=== PATIENT | female | born 1960 | race Caucasian/White ===

== ENCOUNTER 2017-07-02 00:52 | Inpatient (IN) | payer OTHER ==
[2017-07-02] VITALS (16 sets, daily range): BP systolic 100–132; BP diastolic 58–74; PULSE 67–90; RESP 13–18; TEMP 98–98.7; O2SAT 95–98
[~2017-07-02] VITALS: Ht 160 cm; Wt 65.0 kg
[2017-07-02] MEDS ORDERED: SODIUM CHLOR 0.9% 1000 ML INJ 1,000 ML IV SCH (01:01)
[2017-07-02 01:14] LABS: AUTOMATED NEUTROPHIL # 3.9 TH/MM3 (1.8-7.7); BASOPHIL # 0.1 TH/MM3 (0-0.2); BASOPHIL % 1.3 % (0.0-2.0); EOSINOPHIL # 0.3 TH/MM3 (0-0.4); EOSINOPHIL % 3.6 % (0.0-4.0); HEMOGLOBIN 12.8 GM/DL (11.6-15.3); LYMPHOCYTE # 3.7 TH/MM3 (1.0-4.8); MEAN CELL VOLUME 109.8 FL (80.0-100.0); MEAN CORPUSCULAR HGB CONC 32.8 % (32.0-36.0); MEAN PLATELET VOLUME 8.6 FL (7.0-11.0); MONO % 7.4 % (0.0-8.0); MONOCYTE # 0.6 TH/MM3 (0-0.9); NEUT % 44.7 % (16.0-70.0); PLATELET COUNT 330 TH/MM3 (150-450); RED BLOOD COUNT 3.55 MIL/MM3 (4.00-5.30); RED CELL DISTRIBUTION WIDTH 13.4 % (11.6-17.2); WHITE BLOOD COUNT 8.6 TH/MM3 (4.0-11.0)
[2017-07-02] MEDS ORDERED: THIAMINE INJ 100 MG in SODIUM CHLORIDE 0.9% INJ 100 ML IV ONE (01:15)
[2017-07-02] MEDS ORDERED: SODIUM CHLORIDE 0.9% FLUSH 10 ML FLUSH IV FLUSH PRN (01:15)
[2017-07-02 01:23] LABS: CHLORIDE 100 MEQ/L (98-107); SODIUM (NA) 135 MEQ/L (136-145)
[2017-07-02 01:26] LABS: CALCIUM 8.2 MG/DL (8.5-10.1)
[2017-07-02 01:27] LABS: BILIRUBIN, URINE NEG (NEG); BLOOD, URINE NEG (NEG); GLUCOSE,URINE NEG (NEG); KETONE, URINE TRACE mg/dL (NEG); NITRITE,URINE NEG (NEG); URINE LEUKOCYTE ESTERASE NEG (NEG)
[2017-07-02 01:27] LABS: ALBUMIN 3.6 GM/DL (3.4-5.0); BICARBONATE 24.6 MEQ/L (21.0-32.0); BLOOD UREA NITROGEN 10 MG/DL (7-18); GLUCOSE,RANDOM 130 MG/DL (74-106)
[2017-07-02 01:30] LABS: ALT (GPT) 19 U/L (10-53); AST (GOT) 14 U/L (15-37); CREATININE 0.47 MG/DL (0.50-1.00); GLOMERULAR FILTRATION RATE 137 ML/MIN (>89)
[2017-07-02] MEDS ORDERED: PROCHLORPERAZINE INJ 10 MG/2 ML VIAL IV PUSH ONE (01:30)
[2017-07-02 01:31] LABS: TOTAL BILIRUBIN ADULT 0.2 MG/DL (0.2-1.0); TOTAL PROTEIN 7.5 GM/DL (6.4-8.2)
[2017-07-02 01:33] LABS: ALKALINE PHOSPHATASE 64 U/L (45-117)
[2017-07-02 01:34] LABS: URINE COLOR YELLOW (YELLW/STRAW)
[2017-07-02 01:35] LABS: MUCUS URINE OCC /lpf (OCC)
[2017-07-02 01:35] LABS: TROPONIN I LESS THAN 0.02 NG/ML (0.02-0.05)
[2017-07-02 01:36] LABS: SQUAMOUS EPITHELIAL CELL URINE 0-5 /hpf (0-5)
[2017-07-02 01:37] LABS: AMORPHOUS SEDIMENT, URINE LARGE
--- NOTE | 2017-07-02 03:32 | RADRPT ---
EXAM DATE/TIME: 07/02/2017 02:36 [facility] COMPARISON: No previous studies available for comparison. INDICATIONS : Slipped and fell on stairs. RADIATION DOSE: 52.46 CTDIvol (mGy) MEDICAL HISTORY : None SURGICAL HISTORY : None. ENCOUNTER: Initial ACUITY: 1 day PAIN SCALE: 8/10 LOCATION: cranial TECHNIQUE: Multiple contiguous axial images were obtained of the head. Using automated exposure control and adj ustment of the mA and/or kV according to patient size, radiation dose was kept as low as reasonably a chievable to obtain optimal diagnostic quality images. DICOM format image data is available electro nically for review and comparison. FINDINGS: There is a small volume of acute subarachnoid hemorrhage involving the right sylvian fissure. No mass or acute infarction. Ventricles are normal in size. Mucosal thickening involving anterior ethmoid ai r cells on the right. CONCLUSION: 1. Acute subarachnoid hemorrhage on the right. Diogenes Luis Jr., MD on July 02, 2017 at 3:29 Board Certified Radiologist. This report was verified electronically.
--- NOTE | 2017-07-02 03:36 | RADRPT ---
EXAM DATE/TIME: 07/02/2017 02:36 [facility] COMPARISON: No previous studies available for comparison. INDICATIONS : Slipped and fell on stairs RADIATION DOSE: 25.60 CTDIvol (mGy) MEDICAL HISTORY : None SURGICAL HISTORY : None. ENCOUNTER: Initial ACUITY: 1 day PAIN SCALE: 8/10 LOCATION: neck TECHNIQUE: Volumetric scanning of the cervical spine was performed. Multiplanar reconstructions in the sagittal, coronal and oblique axial planes were performed. Using automated exposure control and adjustment o f the mA and/or kV according to patient size, radiation dose was kept as low as reasonably achievable to obtain optimal diagnostic quality images. DICOM format image data is available electronically f or review and comparison. FINDINGS: VERTEBRAE: Normal vertebral body height. ALIGNMENT: There is loss of the natural lordosis. A minimal grade 1 anterolisthesis of C4 on C5. Scattered calcified plaque involving the carotid arteries bilaterally. C2-C3: The bony spinal canal is normal in size. No evidence of disc bulge or herniation. The neural forami na are bilaterally patent. C3-C4: The bony spinal canal is normal in size. No evidence of disc bulge or herniation. The neural forami na are bilaterally patent. C4-C5: The bony spinal canal is normal in size. No evidence of disc bulge or herniation. The neural forami na are bilaterally patent. C5-C6: The bony spinal canal is normal in size. No evidence of disc bulge or herniation. The neural forami na are bilaterally patent. C6-C7: The bony spinal canal is normal in size. No evidence of disc bulge or herniation. The neural forami na are bilaterally patent. C7-T1: The bony spinal canal is normal in size. No evidence of disc bulge or herniation. The neural forami na are bilaterally patent. CONCLUSION: 1. No acute abnormality. Diogenes Luis Jr., MD on July 02, 2017 at 3:32 Board Certified Radiologist. This report was verified electronically.
--- NOTE | 2017-07-02 03:41 | RADRPT ---
EXAM DATE/TIME: 07/02/2017 02:36 [facility] COMPARISON: No previous studies available for comparison. INDICATIONS : Slipped and fell on stairs,abrasions on right face, RADIATION DOSE: 25.68 CTDIvol (mGy) MEDICAL HISTORY : None SURGICAL HISTORY : None. ENCOUNTER: Initial ACUITY: 1 day PAIN SCORE: 8/10 LOCATION: facial TECHNIQUE: Volumetric scanning of the facial bones was performed. Using automated exposure control and adjustme nt of the mA and/or kV according to patient size, radiation dose was kept as low as reasonably achiev able to obtain optimal diagnostic quality images. DICOM format image data is available electronicConstant Therapy y for review and comparison. FINDINGS: There is an acute fracture involving the right zygomatic arch. There is approximately 5 mm of depress ion at the fracture site. The fracture of the zygomatic arch is comminuted. There is a fracture seen extending through the posterior lateral wall the right maxillary sinus as well as through the right a nterolateral wall and right orbital floor. There is overlying soft tissue swelling. Blood is seen wit hin the right maxillary sinus. No entrapment of inferior rectus muscle observed. CONCLUSION: Acute fractures involving the right face consistent with a tripod fracture as detailed above. Diogenes Luis Jr., MD on July 02, 2017 at 3:35 Board Certified Radiologist. This report was verified electronically.
--- NOTE | 2017-07-02 03:50 | PD ---
HPI Chief Complaint: Altered Mental Status Time Seen by Provider: 01:01 Travel History International Travel<30 days: No Contact w/Intl Traveler<30days: No Traveled to known affect area: No History of Present Illness HPI The patient is a 57-year-old female that was drinking alcohol tonight and was climbing up the stairs, slipped and fell. The patient is confused. She is brought in because of altered mental status. She does have complaint of right facial and jaw and head trauma. [facility] Past Medical History Medical History: Unable to Obtain Tetanus Vaccination: Unknown ?: Not Past Surgical History Surgical History: Unable to Obtain Social History Alcohol Use: Yes (drank today, unknown how often ) Tobacco Use: No (unknown) Allergies-Medications (Allergen,Severity, Reaction): Coded Allergies: No Known Allergies (Unverified , 12/13/15) Reported Meds & Prescriptions Reported Meds & Active Scripts Active Active Prescriptions or Reported Medications Unobtainable Review of Systems ROS Limitations: Intoxication, Altered Mental Status Except as stated in HPI: all other systems reviewed are Neg Physical Exam Exam Limitations: Intoxication, Altered Mental Status Narrative GENERAL: The patient is lethargic, slow to answer questions initially and does appear intoxicated. Her vital signs are normal. SKIN: Focused skin assessment warm/dry. No needle tracks nor wrist slash levy are present. HEAD: Neither raccoon eyes nor he sign is present. Normocephalic. EYES: Pupils equal and round. No scleral icterus. No injection or drainage. ENT: No nasal bleeding or discharge. Mucous membranes pink and moist. No hemotympanum is present. There is tenderness over the right mandible as well as swelling in that area. No obvious deformity and the teeth occlude together well. NECK: Trachea midline. No JVD. CARDIOVASCULAR: Regular rate and rhythm. No murmur appreciated. RESPIRATORY: No accessory muscle use. Clear to auscultation. Breath sounds equal bilaterally. GASTROINTESTINAL: Abdomen soft, non-tender, nondistended. Hepatic and splenic margins not palpable. MUSCULOSKELETAL: No obvious deformities. No clubbing. No cyanosis. No edema. NEUROLOGICAL: Awake and alert. No obvious cranial nerve deficits. Motor grossly within normal limits. Normal speech. PSYCHIATRIC: Appropriate mood and affect; insight and judgment normal. Data Data Last Documented VS Vital Signs Date Time Temp Pulse Resp B/P (MAP) Pulse Ox O2 Delivery O2 Flow Rate FiO2 1/1/18 02:45 88 18 132/74 (93) 98 Nasal Cannula 2.00 07/02/17 00:55 98.2 Orders Orders Electrocardiogram (07/02/17 01:01) Complete Blood Count With Diff (07/02/17 01:01) Comprehensive Metabolic Panel (07/02/17 01:01) Troponin I (07/02/17 01:01) Urinalysis - C+S If Indicated (07/02/17 01:01) Ct Brain W/O Iv Contrast(Rout) (07/02/17 01:01) Blood Glucose (07/02/17 01:01) Ecg Monitoring (07/02/17 01:01) Iv Access Insert/Monitor (07/02/17 01:01) Oximetry (07/02/17 01:01) Sodium Chloride 0.9% Flush (Ns Flush) (07/02/17 01:15) Sodium Chlor 0.9% 1000 Ml Inj (Ns 1000 M (07/02/17 01:01) Thiamine Inj (Thiamine Inj) (07/02/17 01:15) Alcohol (Ethanol) (07/02/17 01:01) Ct Cerv Spine W/O Contrast (07/02/17 01:01) Prochlorperazine Inj (Compazine Inj) (07/02/17 01:30) Ct Facial Bones W/O Iv Cont (07/02/17 ) Prothrombin Time / Inr (Pt) (07/02/17 03:52) Act Partial Throm Time (Ptt) (07/02/17 03:52) Labs Laboratory Tests Test 07/02/17 01:07 07/02/17 01:20 White Blood Count 8.6 TH/MM3 Red Blood Count 3.55 MIL/MM3 Hemoglobin 12.8 GM/DL Hematocrit 39.0 % Mean Corpuscular Volume 109.8 FL Mean Corpuscular Hemoglobin 36.0 PG Mean Corpuscular Hemoglobin Concent 32.8 % Red Cell Distribution Width 13.4 % Platelet Count 330 TH/MM3 Mean Platelet Volume 8.6 FL Neutrophils (%) (Auto) 44.7 % Lymphocytes (%) (Auto) 43.0 % Monocytes (%) (Auto) 7.4 % Eosinophils (%) (Auto) 3.6 % Basophils (%) (Auto) 1.3 % Neutrophils # (Auto) 3.9 TH/MM3 Lymphocytes # (Auto) 3.7 TH/MM3 Monocytes # (Auto) 0.6 TH/MM3 Eosinophils # (Auto) 0.3 TH/MM3 Basophils # (Auto) 0.1 TH/MM3 CBC Comment DIFF FINAL Differential Comment Blood Urea Nitrogen 10 MG/DL Creatinine 0.47 MG/DL Random Glucose 130 MG/DL Total Protein 7.5 GM/DL Albumin 3.6 GM/DL Calcium Level 8.2 MG/DL Alkaline Phosphatase 64 U/L Aspartate Amino Transf (AST/SGOT) 14 U/L Alanine Aminotransferase (ALT/SGPT) 19 U/L Total Bilirubin 0.2 MG/DL Sodium Level 135 MEQ/L Potassium Level 3.3 MEQ/L Chloride Level 100 MEQ/L Carbon Dioxide Level 24.6 MEQ/L Anion Gap 10 MEQ/L Estimat Glomerular Filtration Rate 137 ML/MIN Troponin I LESS THAN 0.02 NG/ML Ethyl Alcohol Level 267 MG/DL Urine Collection Type CATH Urine Color YELLOW Urine Turbidity SLIGHT Urine pH 5.[address] 1.017 Urine Protein TRACE mg/dL Urine Glucose (UA) NEG mg/dL Urine Ketones TRACE mg/dL Urine Occult Blood NEG Urine Nitrite NEG Urine Bilirubin NEG Urine Leukocyte Esterase NEG Urine Squamous Epithelial Cells 0-5 /hpf Urine Amorphous Sediment LARGE Urine Bacteria /hpf Urine Hyaline Casts 6-9 /lpf Urine Mucus OCC /lpf Microscopic Urinalysis Comment CATH-CULT NOT IND MDM Medical Decision Making Medical Screen Exam Complete: Yes Emergency Medical Condition: Yes Medical Record Reviewed: Yes Interpretation(s) The CBC is unremarkable. The complete metabolic profile shows a sodium of 135, potassium 3.3, glucose of 1:30 but is otherwise normal. Troponin I is normal. Differential Diagnosis Intracranial bleed, facial fracture, cervical spine fracture, scalp contusion, alcohol intoxication Narrative Course The patient has a subarachnoid hemorrhage which is small without mass effect and a tripod fracture with right facial fractures. I discussed the patient with Dr. Rodriguez, the patient will be [facility]. Diagnosis Primary Impression: Subarachnoid hemorrhage Additional Impression: Fracture of other specified skull and facial bones, right side, initial encounter for closed fracture Admitting Information Admitting Physician Requests: Admit Scripts Unable to Obtain Active Prescriptions or Reported Meds Frederick Mclaughlin MD Jul 02, 2017 03:49
[2017-07-02] MEDS ORDERED: BISACODYL 10 MG SUPP RECTAL PRN (05:00)
[2017-07-02] MEDS ORDERED: SENNOSIDES 8.6 MG TAB PO PRN (05:00)
[2017-07-02] MEDS ORDERED: LABETALOL HCL 100 MG/20 ML VIAL IV PUSH PRN (05:00)
[2017-07-02] MEDS: ACETAMINOPHEN/HYDROcodone 325 MG/10 MG TAB PO PRN ×5 (05:35→21:59)
[2017-07-02] MEDS: ONDANSETRON HCL 4 MG/2 ML VIAL IV PUSH PRN ×2 (05:38→22:04)
[2017-07-02] MEDS: NS + KCL 40 MEQ INJ 1,000 ML IV SCH ×2 (05:39→15:58)
[2017-07-02] MEDS ORDERED: ASPI-183 PO (05:51)
[2017-07-02] MEDS ORDERED: LEVO100T5 PO (05:51)
[2017-07-02] MEDS: SODIUM CHLORIDE 23.4% INJ 188 MEQ in SODIUM CHLOR 0.9% 1000 ML INJ 1,000 ML IV SCH ×2 (06:10→15:00)
--- NOTE | 2017-07-02 09:09 | EKG ---
Date Performed: 07/02/2017 Time Performed: 01:13:23 PTAGE: 57 years EKG: Sinus rhythm Versus ectopic atrial rhythm LOW QRS VOLTAGE IN PRECORDIAL LEADS INCOMPLETE RIGHT BUNDLE BRANCH BLOC K BORDERLINE ECG NO PREVIOUS TRACING DOCTOR: Antonio Lopez Interpretating Date/Time 07/02/2017 09:08:38
[2017-07-02] MEDS: PANTOPRAZOLE SOD 40 MG DELAYED RELEASE TAB PO SCH (09:11)
[2017-07-02] MEDS: DOCUSATE SODIUM 50 MG/SENNA 8.6 MG TAB PO SCH ×2 (09:11→21:59)
--- NOTE | 2017-07-02 12:58 | HHI.HP ---
HPI Service Neurosurgery Primary Care Physician Unknown Chief Complaint: Headache History of Present Illness The patient is a 57-year-old female who reportedly fell while climbing some steps yesterday. She does not recall the incident. She was brought to the emergency room with confusion, altered mental status. No seizure activity reported. She did complain of right facial pain in the emergency room. She presently complains of moderate headache. No nausea or vomiting. Positive diplopia particularly with upward gaze. Otherwise no loss of vision. She has some persistent right facial and jaw discomfort. Review of Systems ROS Limitations: Intoxication Constitutional: DENIES: Fever, Weight gain, Weight loss, Dizziness Eyes: COMPLAINS OF: Diplopia, DENIES: Blurred vision, Vision loss Ears, nose, mouth, throat: DENIES: Tinnitus, Hearing loss, Vertigo Respiratory: DENIES: Cough, Shortness of breath Cardiovascular: DENIES: Chest pain Gastrointestinal: DENIES: Abdominal pain, Diarrhea, Nausea Musculoskeletal: COMPLAINS OF: Muscle aches, DENIES: Joint pain, Back pain, Neck pain Hematologic/lymphatic: DENIES: Bruising Neurologic: COMPLAINS OF: Headache, DENIES: Abnormal gait, Localized weakness Psychiatric: COMPLAINS OF: Confusion Past Family Social History Allergies: Coded Allergies: No Known Allergies (Unverified Allergy, Unknown, 07/02/17) Past Medical History No history of significant cardiac pulmonary gastrointestinal disease diabetes or hypertension. Positive hypothyroidism Past Surgical History No previous surgeries Reported Medications Reported Meds & Active Scripts Active Reported Aspirin 325 Mg Tab 325 Mg PO DAILY Levothyroxine (Levothyroxine Sodium) 100 Mcg Tab 100 Mcg PO DAILY Family History No history of diabetes, cardiac disease, cancer in the family Social History She drinks alcohol occasionally. Smoke cigarettes infrequently Physical Exam Vital Signs Vital Signs Date Time Temp Pulse Resp B/P (MAP) Pulse Ox O2 Delivery O2 Flow Rate FiO2 07/02/17 06:00 89 07/02/17 05:12 87 07/02/17 05:04 91 Room Air 07/02/17 04:44 98.3 85 18 100/58 (72) 98 07/02/17 04:04 98.7 67 18 100/65 (77) 98 Room Air 07/02/17 02:45 88 18 132/74 (93) 98 Nasal Cannula 2.00 07/02/17 01:53 95 3.00 07/02/17 01:00 97 Nasal Cannula 3.00 07/02/17 00:55 98.2 84 16 124/72 (89) 98 Physical Exam GENERAL: This is a well-nourished, well-developed patient, no apparent distress. SKIN: No abrasions, contusion, rash noted. Skin warm and dry. HEAD: Atraumatic. Normocephalic. No temporal or scalp tenderness. EYES: Mild right scleral edema ENT: Mild right facial and periorbital edema and ecchymosis. Mild conjunctival ecchymosis. Moderate tenderness right lateral face of the zygoma and temporomandibular joint region NECK: Trachea midline. No cervical spine tenderness. CARDIOVASCULAR: Regular rate and rhythm without murmurs, gallops, or rubs. RESPIRATORY: Clear to auscultation. Breath sounds equal bilaterally. No wheezes , rales, or rhonchi. GASTROINTESTINAL: Abdomen soft, non-tender, nondistended. No hepato-splenomegaly , or palpable masses. No guarding. MUSCULOSKELETAL: Extremities without cyanosis, or edema. No joint tenderness, or edema noted. No calf tenderness. Dorsalis pedis pulses 2+ bilateral NEUROLOGICAL: Mild lethargy Arouses easily to voice Oriented X 3 Speech is slow with minimal dysarthria Conversant and appropriate Follow simple commands well Answers questions appropriately Reasonable judgment and insight Recent and remote memory are intact except for the events of last evening No evidence of anxiety or depression Pupils are equal and reactive to accommodation. Visual [place] to confrontation , facial sensorimotor, tongue, palate, sternocleidomastoid testing, hearing to finger rub testing, and bilateral shoulder shrug are all intact. The patient appears to have decreased right superior gaze with complaining of diplopia with superior gaze. Sensation is intact to light touch in all extremities Strength normal major flexion and extension groups all extremities Bhavik's absent bilaterally No ankle clonus Plantar responses absent bilateral Fine motor movements intact upper extremities Laboratory Laboratory Tests Test 07/02/17 01:07 07/02/17 01:20 07/02/17 03:57 White Blood Count 8.6 Red Blood Count 3.55 Hemoglobin 12.8 Hematocrit 39.0 Mean Corpuscular Volume 109.8 Mean Corpuscular Hemoglobin 36.0 Mean Corpuscular Hemoglobin Concent 32.8 Red Cell Distribution Width 13.4 Platelet Count 330 Mean Platelet Volume 8.6 Neutrophils (%) (Auto) 44.7 Lymphocytes (%) (Auto) 43.0 Monocytes (%) (Auto) 7.4 Eosinophils (%) (Auto) 3.6 Basophils (%) (Auto) 1.3 Neutrophils # (Auto) 3.9 Lymphocytes # (Auto) 3.7 Monocytes # (Auto) 0.6 Eosinophils # (Auto) 0.3 Basophils # (Auto) 0.1 CBC Comment DIFF FINAL Differential Comment Blood Urea Nitrogen 10 Creatinine 0.47 Random Glucose 130 Total Protein 7.5 Albumin 3.6 Calcium Level 8.2 Alkaline Phosphatase 64 Aspartate Amino Transf (AST/SGOT) 14 Alanine Aminotransferase (ALT/SGPT) 19 Total Bilirubin 0.2 Sodium Level 135 Potassium Level 3.3 Chloride Level 100 Carbon Dioxide Level 24.6 Anion Gap 10 Estimat Glomerular Filtration Rate 137 Troponin I LESS THAN 0.02 Ethyl Alcohol Level 267 Urine Collection Type CATH Urine Color YELLOW Urine Turbidity SLIGHT Urine pH 5.0 Urine Specific [place] 1.017 Urine Protein TRACE Urine Glucose (UA) NEG Urine Ketones TRACE Urine Occult Blood NEG Urine Nitrite NEG Urine Bilirubin NEG Urine Leukocyte Esterase NEG Urine Squamous Epithelial Cells 0-5 Urine Amorphous Sediment LARGE Urine Bacteria Urine Hyaline Casts 6-9 Urine Mucus OCC Microscopic Urinalysis Comment CATH-CULT NOT IND Prothrombin Time 10.0 Prothromb Time International Ratio 1.0 Activated Partial Thromboplast Time 20.5 Result Diagram: 07/02/1710607/02/17106 Imaging 07/02/17 CT scan of the head, cervical spine, maxillofacial CT images are reviewed by the undersigned. There is mild right frontoparietal region subarachnoid hemorrhage. No significant mass effect. Positive right facial fracture of the zygoma extending towards right lateral maxillary sinus and orbital floor. Head CT 07/02/17100 Signed Impressions: Service Date/Time: Sunday, July 02, 2017 02:36 - CONCLUSION: 1. Acute subarachnoid hemorrhage on the right. Diogenes Luis Jr., MD Cervical Spine CT 07/02/17100 Signed Impressions: Service Date/Time: Sunday, July 02, 2017 02:36 - CONCLUSION: 1. No acute abnormality. Diogenes Luis Jr., MD Maxillofacial CT 07/02/17 0000 Signed Impressions: Service Date/Time: Sunday, July 02, 2017 02:36 - CONCLUSION: Acute fractures involving the right face consistent with a tripod fracture as detailed above. MD Donna Jay Jr. VTE Risk Assessment Donna VTE Risk Assessment: No/Low Risk (score <= 1) VTE Pharm Contraindication: Hemorrhage Caprini Risk Assessment Model Point Value = 1 Point Value = 2 Point Value = 3 Point Value = 5 Age 41-60 Minor surgery BMI > 25 kg/m2 Swollen legs Varicose veins or History of unexplained or recurrent spontaneous Oral contraceptives or hormone replacement Sepsis (< 1 month) Serious lung disease, including pneumonia (< 1 month) Abnormal pulmonary function Acute myocardial infarction Congestive heart failure (< 1 month) History of inflammatory bowel disease Medical patient at bed rest Age 61-74 Arthroscopic surgery Major open surgery (> 45 min) Laparoscopic surgery (> 45 min) Malignancy Confined to bed (> 72 hours) Immobilizing plaster cast Central venous access Age >= 75 History of VTE Family history of VTE Factor V Leiden Prothrombin [id number] Lupus anticoagulant Anticardiolipin antibodies Elevated serum homocysteine Heparin-induced thrombocytopenia Other congenital or acquired thrombophilia Stroke (< 1 month) Elective arthroplasty Hip, pelvis, or leg fracture Acute spinal cord injury (< 1 month) Prophylaxis Regimen Total Risk Factor Score Risk Level Prophylaxis Regimen 0-1 Low Early ambulation 2 Moderate Order ONE of the following: *Sequential Compression Device (SCD) *Heparin 5000 units SQ BID 3-4 Higher Order ONE of the following medications: *Heparin 5000 units SQ TID *Enoxaparin/Lovenox 40 mg SQ daily (WT < 150 kg, CrCl > 30 mL/min) *Enoxaparin/Lovenox 30 mg SQ daily (WT < 150 kg, CrCl > 10-29 mL/min) *Enoxaparin/Lovenox 30 mg SQ BID (WT < 150 kg, CrCl > 30 mL/min) AND/OR *Sequential Compression Device (SCD) 5 or more Highest Order ONE of the following medications: *Heparin 5000 units SQ TID (Preferred with Epidurals) *Enoxaparin/Lovenox 40 mg SQ daily (WT < 150 kg, CrCl > 30 mL/min) *Enoxaparin/Lovenox 30 mg SQ daily (WT < 150 kg, CrCl > 10-29 mL/min) *Enoxaparin/Lovenox 30 mg SQ BID (WT < 150 kg, CrCl > 30 mL/min) AND *Sequential Compression Device (SCD) Assessment and Plan Assessment and Plan Impression: 1. 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 Right facial tripod fracture. Diplopia with upward gaze 3. Hyponatremia 4. Hypokalemia 5. Hypothyroidism 6. Alcohol intoxication Plan: Findings discussed with the patient. Continue ISC neuro checks and vital signs Follow-up CT scan head 07/03/17 Hypertonic saline and potassium infusion with follow-up electrolytes Continue patient's normal thyroid medication Plastic surgery consult for facial fractures-discussed the plastic surgery today. Ophthalmology consultation due to orbital floor fracture with upward gaze diplopia. Zheng Rodriguez MD Jul 02, 2017 12:58
[2017-07-02 13:23] LABS: BICARBONATE 24.9 MEQ/L (21.0-32.0); CREATININE 0.47 MG/DL (0.50-1.00); MAGNESIUM 1.8 MG/DL (1.5-2.5)
--- NOTE | 2017-07-02 14:50 | PD.CONS ---
History of Present Illness Service Plastic surgery Consult Requested By Trauma surgery Reason for Consult Right ZMC fracture Primary Care Physician Unknown Diagnoses: History of Present Illness 57F who reportedly fell while climbing some steps yesterday. She does not recall the incident. She was brought to the emergency room with confusion, altered mental status. The patient admits to drinking heavily. She presently complains of moderate headache and right cheek pain. No nausea or vomiting. Positive diplopia in all extremes of gaze. Patient denies changes in vision with central gaze. Patient reports pain with biting Review of Systems Otherwise noncontributory to presenting complaint Past Family Social History Allergies: Coded Allergies: No Known Allergies (Unverified Allergy, Unknown, 07/02/17) Past Medical History NKDA PMH hypothyroidism PSH Denies Medications reviewed FH diabetes, cardiac disease, cancer in the family SH + EtOH/cigarettes Physical Exam Vital Signs Vital Signs Date Time Temp Pulse Resp B/P (MAP) Pulse Ox O2 Delivery O2 Flow Rate FiO2 07/02/17 09:30 96 Nasal Cannula 1.00 07/02/17 07:00 92 Room Air 07/02/17 06:00 89 07/02/17 05:12 87 07/02/17 05:04 91 Room Air 07/02/17 04:44 98.3 85 18 100/58 (72) 98 07/02/17 04:04 98.7 67 18 100/65 (77) 98 Room Air 07/02/17 02:45 88 18 132/74 (93) 98 Nasal Cannula 2.00 07/02/17 01:53 95 3.00 07/02/17 01:00 97 Nasal Cannula 3.00 07/02/17 00:55 98.2 84 16 124/72 (89) 98 Patient sleeping but easily arousable. Alert and oriented 3 No acute distress PERRLA Moist mucous membranes Skin without rash Respirations nonlabored Cranial nerves intact by exam V1 to V3 sensation intact to light touch, normal, and symmetric, except for decrease in right V2 distribution Moderate edema over right zygoma Face nontender to firm palpation except overlying right zygoma Obvious deformity of right zygoma and arch Obvious right vertical ocular dystopia No restriction in upward gaze Extraocular muscles intact Patient reports diplopia in all extremes of gaze Positive orbital rim, zygomatic arch, and zygoma step-offs appreciated Intraorally, patient with multiple missing molars bilaterally Poor dentition overall patient does not report tenderness to direct palpation of teeth Vision appears intact and without changes in central gaze Mild enopthalmos on right Physical Exam GENERAL: This is a well-nourished, well-developed patient, in no apparent distress. SKIN: No rashes, ecchymoses or lesions. Cool and dry. HEAD: Atraumatic. Normocephalic. No temporal or scalp tenderness. EYES: Pupils equal round and reactive. Extraocular motions intact. No scleral icterus. No injection or drainage. ENT: Nose without bleeding, purulent drainage or septal hematoma. Throat without erythema, tonsillar hypertrophy or exudate. Uvula midline. Airway patent. NECK: Trachea midline. No JVD or lymphadenopathy. Supple, nontender, no meningeal signs. CARDIOVASCULAR: Regular rate and rhythm without murmurs, gallops, or rubs. RESPIRATORY: Clear to auscultation. Breath sounds equal bilaterally. No wheezes , rales, or rhonchi. GASTROINTESTINAL: Abdomen soft, non-tender, nondistended. No hepato-splenomegaly , or palpable masses. No guarding. MUSCULOSKELETAL: Extremities without clubbing, cyanosis, or edema. No joint tenderness, effusion, or edema noted. No calf tenderness. Negative Homans sign bilaterally. NEUROLOGICAL: Awake and alert. Cranial nerves II through XII intact. Motor and sensory grossly within normal limits. Five out of 5 muscle strength in all muscle groups. Normal speech. Laboratory Laboratory Tests Test 07/02/17 01:07 07/02/17 01:20 07/02/17 03:57 07/02/17 12:37 White Blood Count 8.6 Red Blood Count 3.55 Hemoglobin 12.8 Hematocrit 39.0 Mean Corpuscular Volume 109.8 Mean Corpuscular Hemoglobin 36.0 Mean Corpuscular Hemoglobin Concent 32.8 Red Cell Distribution Width 13.4 Platelet Count 330 Mean Platelet Volume 8.6 Neutrophils (%) (Auto) 44.7 Lymphocytes (%) (Auto) 43.0 Monocytes (%) (Auto) 7.4 Eosinophils (%) (Auto) 3.6 Basophils (%) (Auto) 1.3 Neutrophils # (Auto) 3.9 Lymphocytes # (Auto) 3.7 Monocytes # (Auto) 0.6 Eosinophils # (Auto) 0.3 Basophils # (Auto) 0.1 CBC Comment DIFF FINAL Differential Comment Blood Urea Nitrogen 10 6 Creatinine 0.47 0.47 Random Glucose 130 103 Total Protein 7.5 Albumin 3.6 Calcium Level 8.2 8.0 Alkaline Phosphatase 64 Aspartate Amino Transf (AST/SGOT) 14 Alanine Aminotransferase (ALT/SGPT) 19 Total Bilirubin 0.2 Sodium Level 135 139 Potassium Level 3.3 4.3 Chloride Level 100 108 Carbon Dioxide Level 24.6 24.9 Anion Gap 10 6 Estimat Glomerular Filtration Rate 137 137 Troponin I LESS THAN 0.02 Ethyl Alcohol Level 267 Urine Collection Type CATH Urine Color YELLOW Urine Turbidity SLIGHT Urine pH 5.0 Urine Specific [place] 1.017 Urine Protein TRACE Urine Glucose (UA) NEG Urine Ketones TRACE Urine Occult Blood NEG Urine Nitrite NEG Urine Bilirubin NEG Urine Leukocyte Esterase NEG Urine Squamous Epithelial Cells 0-5 Urine Amorphous Sediment LARGE Urine Bacteria Urine Hyaline Casts 6-9 Urine Mucus OCC Microscopic Urinalysis Comment CATH-CULT NOT IND Prothrombin Time 10.0 Prothromb Time International Ratio 1.0 Activated Partial Thromboplast Time 20.5 Magnesium Level 1.8 Result Diagram: 07/02/17 0107 07/02/[address] images personally reviewed by me. They show fractures involving the maxillary buttresses, infraorbital rim, zygomatic arch, and zygomaticofrontal buttress, and orbital floor. These are consistent with a zygomaticomaxillary complex fracture with displacement. Assessment and Plan Problem List: (1) Zygomatic fracture, right side, initial encounter for closed fracture ICD Codes: S02.40EA - Zygomatic fracture, right side, initial encounter for closed fracture Status: Acute Assessment and Plan 57-year-old female who presents status post fall down stairs, with displaced right ZMC fracture Lengthy discussion had with patient regarding risks benefits and alternatives to various treatment options. Discussed with patient in words she could understand regarding complications of this fracture whether it is treated or not, including but not limited to enophthalmos, vertical orbital dystopia, vision changes, injury to the eye, deformity, malocclusion/changes in bite, need for further procedures. Patient agrees with the recommendation for operative repair. She therefore elects to assume the risks of operative repair . Informed consent was obtained. Given her degree of edema, will plan to perform operative repair 7-10 days from today. All questions were answered. Patient expresses understanding and agrees with above plan Frederick Moon MD Jul 02, 2017 14:50
[2017-07-03] VITALS (13 sets, daily range): BP systolic 120–138; BP diastolic 60–76; PULSE 65–80; RESP 12–21; TEMP 98.1–98.6; O2SAT 90–98
[2017-07-03] MEDS: SODIUM CHLORIDE 23.4% INJ 188 MEQ in SODIUM CHLOR 0.9% 1000 ML INJ 1,000 ML IV SCH ×2 (01:00→18:29)
[2017-07-03] MEDS: ACETAMINOPHEN/HYDROcodone 325 MG/10 MG TAB PO PRN ×6 (01:53→23:40)
[2017-07-03] MEDS: NS + KCL 40 MEQ INJ 1,000 ML IV SCH ×2 (03:37→17:08)
[2017-07-03 05:25] LABS: AUTOMATED NEUTROPHIL # 7.3 TH/MM3 (1.8-7.7); BASOPHIL % 0.2 % (0.0-2.0); EOSINOPHIL # 0.1 TH/MM3 (0-0.4); EOSINOPHIL % 0.7 % (0.0-4.0); HEMATOCRIT 34.9 % (35.0-46.0); HEMOGLOBIN 11.7 GM/DL (11.6-15.3); LYMPHOCYTE # 1.6 TH/MM3 (1.0-4.8); MEAN CELL VOLUME 111.5 FL (80.0-100.0); MEAN CORPUSCULAR HEMOGLOBIN 37.4 PG (27.0-34.0); MEAN CORPUSCULAR HGB CONC 33.5 % (32.0-36.0); MEAN PLATELET VOLUME 8.8 FL (7.0-11.0); MONO % 8.4 % (0.0-8.0); MONOCYTE # 0.8 TH/MM3 (0-0.9); NEUT % 74.7 % (16.0-70.0); PLATELET COUNT 235 TH/MM3 (150-450); RED BLOOD COUNT 3.13 MIL/MM3 (4.00-5.30); RED CELL DISTRIBUTION WIDTH 13.1 % (11.6-17.2); WHITE BLOOD COUNT 9.7 TH/MM3 (4.0-11.0)
[2017-07-03 05:43] LABS: CALCIUM 8.6 MG/DL (8.5-10.1); CREATININE 0.54 MG/DL (0.50-1.00)
[2017-07-03] MEDS: DOCUSATE SODIUM 50 MG/SENNA 8.6 MG TAB PO SCH ×2 (09:00→20:02)
[2017-07-03] MEDS: PANTOPRAZOLE SOD 40 MG DELAYED RELEASE TAB PO SCH (10:00)
[2017-07-03] MEDS: ONDANSETRON HCL 4 MG/2 ML VIAL IV PUSH PRN ×3 (10:01→23:41)
--- NOTE | 2017-07-03 12:51 | HHI.NSPN ---
(Poli Valdivia) History Chief Complaint: Doing better than yesterday. (Poli Valdivia) Interval History 07/02: The patient is a 57-year-old female who reportedly fell while climbing some steps yesterday. She does not recall the incident. She was brought to the emergency room with confusion, altered mental status. No seizure activity reported. She did complain of right facial pain in the emergency room. She presently complains of moderate headache. No nausea or vomiting. Positive diplopia particularly with upward gaze. Otherwise no loss of vision. She has some persistent right facial and jaw discomfort. 07/03: When seen this afternoon Nursing had just gotten the patient up to the side of the bed. She stated she was doing better than yesterday and denied any headache, dizziness, or nausea. She also denied any pain, numbness, tingling or weakness to the extremities. Her is visiting with her. She spontaneously moves all extremities, follows commands and is oriented. Plastic Surgery evaluated the patient yesterday and will repair the facial fractures once her swelling goes down. (oPli Valdivia) Exam Results 07/01/17 07/01/17 07/02/17 07/02/17 07/03/17 07/03/17 06:00 18:00 06:00 18:00 06:00 18:00 Intake Total 1101 ml 1597 ml 1383 ml Output Total 1695 ml 1500 ml Balance 1101 ml -98 ml -117 ml Intake Oral 250 ml IV Total 1101 ml 1347 ml 1383 ml Output Urine Total 1695 ml 1500 ml # Voids 8 6 # Bowel Movements 0 0 Vital Signs Date Time Temp Pulse Resp B/P (MAP) Pulse Ox O2 Delivery O2 Flow Rate FiO2 07/03/17 11:00 22 07/03/17 10:00 78 07/03/17 08:13 95 Nasal Cannula 1.00 07/03/17 08:00 65 07/03/17 07:00 99 Nasal Cannula 1.00 07/03/17 06:00 74 07/03/17 04:00 72 07/03/17 04:00 98.6 72 12 120/66 (84) 97 07/03/17 02:00 70 07/03/17 00:00 98.2 78 12 128/75 (92) 96 07/03/17 00:00 78 07/02/17 22:00 84 07/02/17 20:00 98.0 80 13 111/63 (79) 98 07/02/17 20:00 80 07/02/17 19:51 97 Nasal Cannula 1.00 07/02/17 19:00 97 Nasal Cannula 1.00 07/02/17 18:00 78 07/02/17 16:00 80 07/02/17 14:00 90 07/02/17 12:00 88 07/02/17 10:00 82 07/02/17 09:30 96 Nasal Cannula 1.00 07/02/17 08:00 85 07/02/17 07:00 92 Room Air 07/02/17 06:00 89 07/02/17 05:12 87 07/02/17 05:04 91 Room Air 07/02/17 04:44 98.3 85 18 100/58 (72) 98 07/02/17 04:04 98.7 67 18 100/65 (77) 98 Room Air 07/02/17 02:45 88 18 132/74 (93) 98 Nasal Cannula 2.00 07/02/17 01:53 95 3.00 07/02/17 01:00 97 Nasal Cannula 3.00 07/02/17 00:55 98.2 84 16 124/72 (89) 98 (Poli Valdivia) Physical Examination GENERAL: Awake & alert, readily interacts, essentially flat affect, no apparent distress. HEENT: Ecchymosis to the right lateral orbit w/laceration-abrasion mildly TTP. Zygoma & temporomandibular joint mildly TTP. PERRLA 3 mm brisk, EOMI. No otorrhea or rhinorrhea. MMM & pink, tongue midline to protrusion. Slight right- sided facial droop. MUSCULOSKELETAL: Extremities NTTP, no clubbing or deformity noted. NEUROLOGICAL: AAOx3. Speech clear but slow, appropriate. Follows simple commands w/o difficulty. Probable CN VII deficit indicated by slight right-sided facial droop otherwise CN II-XII are grossly intact. The patient denies any diplopia with superior gaze to right eye. Sensation is intact to light touch in all extremities. Strength normal to all major flexion and extension muscle groups of extremities , to include hand intrinsics/extrinsics. (Poli Valdivia) Lab, Micro, Other Results Recent Impressions Head CT 07/02/17100 Signed Impressions: Service Date/Time: Sunday, July 02, 2017 02:36 - CONCLUSION: 1. Acute subarachnoid hemorrhage on the right. Diogenes Luis Jr., MD Cervical Spine CT 07/02/17100 Signed Impressions: Service Date/Time: Sunday, July 02, 2017 02:36 - CONCLUSION: 1. No acute abnormality. Diogenes Luis Jr., MD Maxillofacial CT 07/02/17 0000 Signed Impressions: Service Date/Time: Sunday, July 02, 2017 02:36 - CONCLUSION: Acute fractures involving the right face consistent with a tripod fracture as detailed above. Diogenes Luis Jr., MD Laboratory Tests Test 07/02/17 01:07 07/02/17 01:20 07/02/17 03:57 07/02/17 12:37 White Blood Count 8.6 TH/MM3 Red Blood Count 3.55 MIL/MM3 Hemoglobin 12.8 GM/DL Hematocrit 39.0 % Mean Corpuscular Volume 109.8 FL Mean Corpuscular Hemoglobin 36.0 PG Mean Corpuscular Hemoglobin Concent 32.8 % Red Cell Distribution Width 13.4 % Platelet Count 330 TH/MM3 Mean Platelet Volume 8.6 FL Neutrophils (%) (Auto) 44.7 % Lymphocytes (%) (Auto) 43.0 % Monocytes (%) (Auto) 7.4 % Eosinophils (%) (Auto) 3.6 % Basophils (%) (Auto) 1.3 % Neutrophils # (Auto) 3.9 TH/MM3 Lymphocytes # (Auto) 3.7 TH/MM3 Monocytes # (Auto) 0.6 TH/MM3 Eosinophils # (Auto) 0.3 TH/MM3 Basophils # (Auto) 0.1 TH/MM3 CBC Comment DIFF FINAL Differential Comment Blood Urea Nitrogen 10 MG/DL 6 MG/DL Creatinine 0.47 MG/DL 0.47 MG/DL Random Glucose 130 MG/DL 103 MG/DL Total Protein 7.5 GM/DL Albumin 3.6 GM/DL Calcium Level 8.2 MG/DL 8.0 MG/DL Alkaline Phosphatase 64 U/L Aspartate Amino Transf (AST/SGOT) 14 U/L Alanine Aminotransferase (ALT/SGPT) 19 U/L Total Bilirubin 0.2 MG/DL Sodium Level 135 MEQ/L 139 MEQ/L Potassium Level 3.3 MEQ/L 4.3 MEQ/L Chloride Level 100 MEQ/L 108 MEQ/L Carbon Dioxide Level 24.6 MEQ/L 24.9 MEQ/L Anion Gap 10 MEQ/L 6 MEQ/L Estimat Glomerular Filtration Rate 137 ML/MIN 137 ML/MIN Troponin I LESS THAN 0.02 NG/ML Ethyl Alcohol Level 267 MG/DL Urine Collection Type CATH Urine Color YELLOW Urine Turbidity SLIGHT Urine pH 5.0 Urine Specific [place] 1.017 Urine Protein TRACE mg/dL Urine Glucose (UA) NEG mg/dL Urine Ketones TRACE mg/dL Urine Occult Blood NEG Urine Nitrite NEG Urine Bilirubin NEG Urine Leukocyte Esterase NEG Urine Squamous Epithelial Cells 0-5 /hpf Urine Amorphous Sediment LARGE Urine Bacteria /hpf Urine Hyaline Casts 6-9 /lpf Urine Mucus OCC /lpf Microscopic Urinalysis Comment CATH-CULT NOT IND Prothrombin Time 10.0 SEC Prothromb Time International Ratio 1.0 RATIO Activated Partial Thromboplast Time 20.5 SEC Magnesium Level 1.8 MG/DL Test 07/03/17 04:56 White Blood Count 9.7 TH/MM3 Red Blood Count 3.13 MIL/MM3 Hemoglobin 11.7 GM/DL Hematocrit 34.9 % Mean Corpuscular Volume 111.5 FL Mean Corpuscular Hemoglobin 37.4 PG Mean Corpuscular Hemoglobin Concent 33.5 % Red Cell Distribution Width 13.1 % Platelet Count 235 TH/MM3 Mean Platelet Volume 8.8 FL Neutrophils (%) (Auto) 74.7 % Lymphocytes (%) (Auto) 16.0 % Monocytes (%) (Auto) 8.4 % Eosinophils (%) (Auto) 0.7 % Basophils (%) (Auto) 0.2 % Neutrophils # (Auto) 7.3 TH/MM3 Lymphocytes # (Auto) 1.6 TH/MM3 Monocytes # (Auto) 0.8 TH/MM3 Eosinophils # (Auto) 0.1 TH/MM3 Basophils # (Auto) 0.0 TH/MM3 CBC Comment DIFF FINAL Differential Comment Blood Urea Nitrogen 5 MG/DL Creatinine 0.54 MG/DL Random Glucose 100 MG/DL Calcium Level 8.6 MG/DL Sodium Level 140 MEQ/L Potassium Level 4.7 MEQ/L Chloride Level 105 MEQ/L Carbon Dioxide Level 30.0 MEQ/L Anion Gap 5 MEQ/L Estimat Glomerular Filtration Rate 117 ML/MIN (Poli Valdivia) Medical Decision Making Impression and Plan Impression: 1. 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 Right facial tripod fracture. Diplopia with upward gaze 3. Hyponatremia 4. Hypokalemia 5. Hypothyroidism 6. Alcohol intoxication Patient doing well and is neurologically intact except for right-sided facial droop. Right eye diplopia resolved per patient. Plan: Discussed plan of care with patient, & Nursing. Neuro checks. Stat CT brain for any decline in neuro status. Follow-up CT brain today. Okay for BSC w/assistance. Continue thyroid medication. Appreciate Plastic Surgery's input for facial fractures. Ophthalmology consultation due to orbital floor fracture with upward gaze diplopia. (Poli Valdivia) Attending Statement The exam, history, and the medical decision-making described in the above note were completed with the assistance of the mid-level provider. I reviewed and agree with the findings presented. I attest that I had a [id number] encounter with the patient on the same day, and personally performed and documented my assessment and findings in the medical record. On my examination of the patient on 07/03/2017 she is somewhat more alert and conversant. Speech is a little slow but clear. She is oriented conversant and appropriate. She continues to complain of diplopia with right upward gaze. Facial motor movements symmetric She moves all extremities with good strength to command Sensation intact light touch all extremities Respirations are clear and nonlabored Heart rate is regular 07/03/17 follow-up CT scan head images reviewed and discussed with the patient. There is early improvement in the mild subarachnoid hemorrhage. She is stable from a neurosurgical standpoint to proceed with repair of facial fractures per plastic surgery. Ophthalmology has not yet seen the patient. (Zheng Rodriguez MD) Poli Valdivia Jul 03, 2017 12:51 Zheng Rodriguez MD Jul 04, 2017 13:41
--- NOTE | 2017-07-03 15:56 | RADRPT ---
EXAM DATE/TIME: 07/03/2017 15:36 [facility] COMPARISON: CT BRAIN W/O CONTRAST, July 02, 2017, 2:36. INDICATIONS : Head trauma RADIATION DOSE: 31.66 CTDIvol (mGy) MEDICAL HISTORY : Subarachnoid hemorrhage SURGICAL HISTORY : None. ENCOUNTER: Initial ACUITY: 1 day PAIN SCALE: 4/10 LOCATION: cranial TECHNIQUE: Multiple contiguous axial images were obtained of the head. Using automated exposure control and adj ustment of the mA and/or kV according to patient size, radiation dose was kept as low as reasonably a chievable to obtain optimal diagnostic quality images. DICOM format image data is available electro nically for review and comparison. FINDINGS: The previously seen subarachnoid hemorrhage on the right side has improved significantly with minimal hemorrhage remaining. There is no evidence for mass effect, mass lesions, edema, or extra-axial flui d collections. The visualized bony structures appear intact. The ventricles are normal size for the patient's age. There are no signs of acute infarction for technique. There are facial bone fracture s discussed and the patient facial CT. 8mm lucencies present in the left frontal skull nonspecific, h owever mostly benign. CONCLUSION: Improvement in subarachnoid hemorrhage since the prior exam. Jaron Taylor MD on July 03, 2017 at 15:51 Board Certified Radiologist. This report was verified electronically.
[2017-07-04] VITALS (11 sets, daily range): BP systolic 116–151; BP diastolic 75–83; PULSE 66–80; RESP 12–22; TEMP 97.9–98.8; O2SAT 92–100
[2017-07-04] MEDS: NS + KCL 40 MEQ INJ 1,000 ML IV SCH ×3 (03:31→17:14)
[2017-07-04] MEDS: ACETAMINOPHEN/HYDROcodone 325 MG/10 MG TAB PO PRN ×5 (03:45→21:54)
[2017-07-04] MEDS: SODIUM CHLORIDE 23.4% INJ 188 MEQ in SODIUM CHLOR 0.9% 1000 ML INJ 1,000 ML IV SCH ×2 (07:37→16:35)
[2017-07-04] MEDS: ONDANSETRON HCL 4 MG/2 ML VIAL IV PUSH PRN ×3 (08:03→16:34)
[2017-07-04] MEDS: PANTOPRAZOLE SOD 40 MG DELAYED RELEASE TAB PO SCH (09:24)
[2017-07-04] MEDS: DOCUSATE SODIUM 50 MG/SENNA 8.6 MG TAB PO SCH ×2 (09:24→21:54)
[2017-07-04] MEDS ORDERED: HYDR-3583 PO (15:03)
--- NOTE | 2017-07-04 15:11 | HHI.FF ---
Face to Face Verification Diagnosis: (1) Subarachnoid hemorrhage (2) Fracture of other specified skull and facial bones, right side, initial encounter for closed fracture (3) Zygomatic fracture, right side, initial encounter for closed fracture Physical Therapy Order: Evaluate and Treat Occupational Therapy Order: Evaluate and Treat Speech Therapy Order: To Improve: Speech and communication skills, Cognitive skills I have seen patient Clint Benitez on 07/04/17. My clinical findings support the need for the requested home health care services because: Limited ability to care for self Impaired cognition/judgement I certify that my clinical findings support that this patient is homebound because: Impaired cognitive ability/safety Poli Valdivia Jul 04, 2017 15:11 Zheng Rodriguez MD Jul 04, 2017 20:03
--- NOTE | 2017-07-04 15:13 | HHI.DCPOC ---
Discharge Care Plan Diagnosis: (1) Subarachnoid hemorrhage (2) Fracture of other specified skull and facial bones, right side, initial encounter for closed fracture (3) Zygomatic fracture, right side, initial encounter for closed fracture Your Health Problems Are: Difficulty with ADL Additional Problems Confusion Goals to Promote Your Health * To prevent worsening of your condition and complications * To maintain your health at the optimal level No lifting, bending, pushing, pulling or other strenuous activity. Take the pain medication as prescribed. Avoid taking any medication that contains aspirin or NSAIDs (ibuprofen, naproxen , Motrin, Advil, Naprosyn) for at least a month. Follow up in the office in 10 to 14 days. Directions to Meet Your Goals Take your medications as prescribed Follow your dietary instruction Follow activity as directed No lifting, bending, pushing, pulling or other strenuous activity. Take the pain medication as prescribed. Avoid taking any medication that contains aspirin or NSAIDs (ibuprofen, naproxen , Motrin, Advil, Naprosyn) for at least a month. Follow up in the office in 10 to 14 days. Keep your appointments as scheduled Take your immunizations and boosters as scheduled If your symptoms worsen call your PCP, if no PCP go to Urgent Care Center or Emergency Room Smoking is Dangerous to Your Health. Avoid second hand smoke Call the 24-hour hour crisis hotline for domestic abuse at Poli Valdivia Jul 04, 2017 15:13 Zheng Rodriguez MD Jul 04, 2017 20:10
--- NOTE | 2017-07-04 15:16 | HHI.DS ---
Poli Valdivia [facility] 07/04/17 1516: Discharge Summary Admission Date Jul 02, 2017 at 04:04 Discharge Date: Jul 05, 2017 Admitting Diagnosis (1) Subarachnoid hemorrhage Diagnosis: Principal ICD Code: I60.9 - Nontraumatic subarachnoid hemorrhage, unspecified Status: Acute (2) Fracture of other specified skull and facial bones, right side, initial encounter for closed fracture Diagnosis: Secondary ICD Code: S02.81XA - Fracture of other specified skull and facial bones, right side, initial encounter for closed fracture Status: Acute (3) Zygomatic fracture, right side, initial encounter for closed fracture Diagnosis: Secondary ICD Code: S02.40EA - Zygomatic fracture, right side, initial encounter for closed fracture Status: Acute Brief History The patient is a 57-year-old female who reportedly fell while climbing some steps yesterday. She does not recall the incident. She was brought to the emergency room with confusion, altered mental status. No seizure activity reported. She did complain of right facial pain in the emergency room. She presently complains of moderate headache. No nausea or vomiting. Positive diplopia particularly with upward gaze. Otherwise no loss of vision. She has some persistent right facial and jaw discomfort. CBC/BMP: 07/03/17 0456 07/03/17 0456 Significant Findings Laboratory Tests Test 07/02/17 01:07 07/02/17 01:20 07/02/17 03:57 07/02/17 12:37 Red Blood Count 3.55 MIL/MM3 (4.00-5.30) Mean Corpuscular Volume 109.8 FL (80.0-100.0) Mean Corpuscular Hemoglobin 36.0 PG (27.0-34.0) Creatinine 0.47 MG/DL (0.50-1.00) 0.47 MG/DL (0.50-1.00) Random Glucose 130 MG/DL (74-106) Calcium Level 8.2 MG/DL (8.5-10.1) 8.0 MG/DL (8.5-10.1) Aspartate Amino Transf (AST/SGOT) 14 U/L (15-37) Sodium Level 135 MEQ/L (136-145) Potassium Level 3.3 MEQ/L (3.5-5.1) Troponin I LESS THAN 0.02 NG/ML Ethyl Alcohol Level 267 MG/DL (0-5) Urine Ketones TRACE mg/dL (NEG) Urine Hyaline Casts 6-9 /lpf (RARE) Activated Partial Thromboplast Time 20.5 SEC (24.3-30.1) Blood Urea Nitrogen 6 MG/DL (7-18) Chloride Level 108 MEQ/L (98-107) Test 07/03/17 04:56 07/04/17 12:00 Red Blood Count 3.13 MIL/MM3 (4.00-5.30) Hematocrit 34.9 % (35.0-46.0) Mean Corpuscular Volume 111.5 FL (80.0-100.0) Mean Corpuscular Hemoglobin 37.4 PG (27.0-34.0) Neutrophils (%) (Auto) 74.7 % (16.0-70.0) Monocytes (%) (Auto) 8.4 % (0.0-8.0) Blood Urea Nitrogen 5 MG/DL (7-18) Hospital Course 07/02: The patient is a 57-year-old female who reportedly fell while climbing some steps yesterday. She does not recall the incident. She was brought to the emergency room with confusion, altered mental status. No seizure activity reported. She did complain of right facial pain in the emergency room. She presently complains of moderate headache. No nausea or vomiting. Positive diplopia particularly with upward gaze. Otherwise no loss of vision. She has some persistent right facial and jaw discomfort. 07/03: When seen this afternoon Nursing had just gotten the patient up to the side of the bed. She stated she was doing better than yesterday and denied any headache, dizziness, or nausea. She also denied any pain, numbness, tingling or weakness to the extremities. Her is visiting with her. She spontaneously moves all extremities, follows commands and is oriented. Plastic Surgery evaluated the patient yesterday and will repair the facial fractures once her swelling goes down. 07/04: This afternoon when seen the patient states that she is doing better than yesterday. She was transferred from [facility] to the med/surg floor earlier today. She denies any headache or dizziness. She never responded that she did have nausea but said Nursing had given her something for it. She denies any double vision. Speech Therapy evaluated the patient this afternoon and recommended that she be on a full liquid diet. Physical Therapy felt that the patient was able to be discharged home with further therapy by Home Health Care. Pt Condition on Discharge: Good Discharge Disposition: Disch w/ Home Health Serv Discharge Instructions DIET: Follow Instructions for: Full Liquid Diet ACTIVITIES You can perform: Shower/Bath, Full Weight Bearing Activities to Avoid: Concussion Sports, Contact Sports, Strenuous Activity ADDITIONAL Activity Instructio: No lifting, bending, pushing, pulling or other strenuous activity. Additional Information Take the pain medication as prescribed. Avoid taking any medication that contains aspirin or NSAIDs (ibuprofen, naproxen , Motrin, Advil, Naprosyn) for at least a month. Follow up in the office in 10 to 14 days. Zheng Rodriguez MD 07/04/172009: Discharge Summary CBC/BMP: 07/03/17 0456 07/03/17 0456 Poli Valdivia Jul 04, 2017 15:16 Zheng Rodriguez MD Jul 04, 2017 20:10
[2017-07-04] MEDS ORDERED: PERI PO (15:17)
--- NOTE | 2017-07-04 17:42 | HHI.NSPN ---
(Poli Valdivia) History Chief Complaint: Doing better than yesterday. (Poli Valdivia) Interval History 07/02: The patient is a 57-year-old female who reportedly fell while climbing some steps yesterday. She does not recall the incident. She was brought to the emergency room with confusion, altered mental status. No seizure activity reported. She did complain of right facial pain in the emergency room. She presently complains of moderate headache. No nausea or vomiting. Positive diplopia particularly with upward gaze. Otherwise no loss of vision. She has some persistent right facial and jaw discomfort. 07/03: When seen this afternoon Nursing had just gotten the patient up to the side of the bed. She stated she was doing better than yesterday and denied any headache, dizziness, or nausea. She also denied any pain, numbness, tingling or weakness to the extremities. Her is visiting with her. She spontaneously moves all extremities, follows commands and is oriented. Plastic Surgery evaluated the patient yesterday and will repair the facial fractures once her swelling goes down. 07/04: This afternoon when seen the patient states that she is doing better than yesterday. She was transferred from [facility] to the med/surg floor earlier today. She denies any headache or dizziness. She never responded that she did have nausea but said Nursing had given her something for it. She denies any double vision. Speech Therapy evaluated the patient this afternoon and recommended that she be on a full liquid diet. Physical Therapy felt that the patient was able to be discharged home with further therapy by Home Health Care. (Poli Valdivia) Exam Results 07/02/17 07/02/17 07/03/17 07/03/17 07/04/17 07/04/17 06:00 18:00 06:00 18:00 06:00 18:00 Intake Total 1101 ml 1597 ml 1383 ml 1555 ml 1420 ml Output Total 1695 ml 1500 ml 900 ml 1575 ml Balance 1101 ml -98 ml -117 ml 655 ml -155 ml Intake Oral 250 ml 240 ml 420 ml IV Total 1101 ml 1347 ml 1383 ml 349 ml 1000 ml Other 966 ml Output Urine Total 1695 ml 1500 ml 900 ml 1575 ml # Voids 8 6 # Bowel Movements 0 0 0 0 Vital Signs Date Time Temp Pulse Resp B/P (MAP) Pulse Ox O2 Delivery O2 Flow Rate FiO2 07/04/17 16:00 98.4 74 19 133/80 (97) 95 07/04/17 14:00 67 07/04/17 12:59 24 07/04/17 12:00 72 07/04/17 12:00 98.2 72 12 120/79 (93) 92 07/04/17 10:00 72 07/04/17 08:00 97.9 74 22 145/75 (98) 92 07/04/17 08:00 74 07/04/17 07:55 98 21 07/04/17 07:00 97 Room Air 07/04/17 06:00 69 07/04/17 04:00 98.3 68 22 150/83 (105) 98 07/04/17 04:00 68 07/04/17 02:00 66 07/04/17 00:00 70 07/04/17 00:00 98.1 70 12 151/79 (103) 100 07/03/17 22:00 69 07/03/17 20:00 76 07/03/17 20:00 98.2 76 21 138/75 (96) 90 07/03/17 19:00 91 Room Air 07/03/17 18:00 71 07/03/17 16:00 98.1 74 16 128/76 (93) 93 07/03/17 16:00 80 07/03/17 14:00 80 07/03/17 12:00 98.3 80 15 134/60 (84) 98 07/03/17 12:00 68 07/03/17 10:00 78 07/03/17 08:13 95 Nasal Cannula 1.00 07/03/17 08:00 98.4 74 14 120/66 (84) 97 07/03/17 08:00 65 07/03/17 07:00 99 Nasal Cannula 1.00 07/03/17 06:00 74 07/03/17 04:00 72 07/03/17 04:00 98.6 72 12 120/66 (84) 97 07/03/17 02:00 70 07/03/17 00:00 98.2 78 12 128/75 (92) 96 07/03/17 00:00 78 07/02/17 22:00 84 07/02/17 20:00 98.0 80 13 111/63 (79) 98 07/02/17 20:00 80 07/02/17 19:51 97 Nasal Cannula 1.00 07/02/17 19:00 97 Nasal Cannula 1.00 07/02/17 18:00 78 07/02/17 16:00 80 07/02/17 14:00 90 07/02/17 12:00 88 07/02/17 10:00 82 07/02/17 09:30 96 Nasal Cannula 1.00 07/02/17 08:00 85 07/02/17 07:00 92 Room Air 07/02/17 06:00 89 07/02/17 05:12 87 07/02/17 05:04 91 Room Air 07/02/17 04:44 98.3 85 18 100/58 (72) 98 07/02/17 04:04 98.7 67 18 100/65 (77) 98 Room Air 07/02/17 02:45 88 18 132/74 (93) 98 Nasal Cannula 2.00 07/02/17 01:53 95 3.00 07/02/17 01:00 97 Nasal Cannula 3.00 07/02/17 00:55 98.2 84 16 124/72 (89) 98 (Poli Valdivia) Physical Examination GENERAL: Awake & alert, readily interacts, essentially flat affect, no apparent distress. HEENT: Ecchymosis to the right lateral orbit w/laceration-abrasion mildly TTP. Zygoma & temporomandibular joint mildly TTP. PERRLA 3 mm brisk, EOMI. No otorrhea or rhinorrhea. MMM & pink, tongue midline to protrusion. No evident right-sided facial droop. MUSCULOSKELETAL: Extremities NTTP, no clubbing or deformity noted. NEUROLOGICAL: AAOx3. Speech clear but slow, appropriate. Follows simple commands w/o difficulty. CN II-XII appear grossly intact, no evident right-sided facial droop. The patient denies any diplopia with superior gaze to right eye. Sensation is intact to light touch in all extremities. Strength normal to all major flexion and extension muscle groups of extremities. (Poli Valdivia) Lab, Micro, Other Results Recent Impressions Head CT 07/03/17 1220 Signed Impressions: Service Date/Time: Monday, July 03, 2017 15:36 - CONCLUSION: Improvement in subarachnoid hemorrhage since the prior exam. Jaron Taylor MD Head CT 07/02/17 0101 Signed Impressions: Service Date/Time: Sunday, July 02, 2017 02:36 - CONCLUSION: 1. Acute subarachnoid hemorrhage on the right. Diogenes Luis Jr., MD Cervical Spine CT 07/02/17 010 Signed Impressions: Service Date/Time: Sunday, July 02, 2017 02:36 - CONCLUSION: 1. No acute abnormality. Diogenes Luis Jr., MD Maxillofacial CT 07/02/17 0000 Signed Impressions: Service Date/Time: Sunday, July 02, 2017 02:36 - CONCLUSION: Acute fractures involving the right face consistent with a tripod fracture as detailed above. Diogenes Luis Jr., MD Laboratory Tests Test 07/02/17 01:07 07/02/17 01:20 07/02/17 03:57 07/02/17 12:37 White Blood Count 8.6 TH/MM3 Red Blood Count 3.55 MIL/MM3 Hemoglobin 12.8 GM/DL Hematocrit 39.0 % Mean Corpuscular Volume 109.8 FL Mean Corpuscular Hemoglobin 36.0 PG Mean Corpuscular Hemoglobin Concent 32.8 % Red Cell Distribution Width 13.4 % Platelet Count 330 TH/MM3 Mean Platelet Volume 8.6 FL Neutrophils (%) (Auto) 44.7 % Lymphocytes (%) (Auto) 43.0 % Monocytes (%) (Auto) 7.4 % Eosinophils (%) (Auto) 3.6 % Basophils (%) (Auto) 1.3 % Neutrophils # (Auto) 3.9 TH/MM3 Lymphocytes # (Auto) 3.7 TH/MM3 Monocytes # (Auto) 0.6 TH/MM3 Eosinophils # (Auto) 0.3 TH/MM3 Basophils # (Auto) 0.1 TH/MM3 CBC Comment DIFF FINAL Differential Comment Blood Urea Nitrogen 10 MG/DL 6 MG/DL Creatinine 0.47 MG/DL 0.47 MG/DL Random Glucose 130 MG/DL 103 MG/DL Total Protein 7.5 GM/DL Albumin 3.6 GM/DL Calcium Level 8.2 MG/DL 8.0 MG/DL Alkaline Phosphatase 64 U/L Aspartate Amino Transf (AST/SGOT) 14 U/L Alanine Aminotransferase (ALT/SGPT) 19 U/L Total Bilirubin 0.2 MG/DL Sodium Level 135 MEQ/L 139 MEQ/L Potassium Level 3.3 MEQ/L 4.3 MEQ/L Chloride Level 100 MEQ/L 108 MEQ/L Carbon Dioxide Level 24.6 MEQ/L 24.9 MEQ/L Anion Gap 10 MEQ/L 6 MEQ/L Estimat Glomerular Filtration Rate 137 ML/MIN 137 ML/MIN Troponin I LESS THAN 0.02 NG/ML Ethyl Alcohol Level 267 MG/DL Urine Collection Type CATH Urine Color YELLOW Urine Turbidity SLIGHT Urine pH 5.0 Urine Specific Brimson 1.017 Urine Protein TRACE mg/dL Urine Glucose (UA) NEG mg/dL Urine Ketones TRACE mg/dL Urine Occult Blood NEG Urine Nitrite NEG Urine Bilirubin NEG Urine Leukocyte Esterase NEG Urine Squamous Epithelial Cells 0-5 /hpf Urine Amorphous Sediment LARGE Urine Bacteria /hpf Urine Hyaline Casts 6-9 /lpf Urine Mucus OCC /lpf Microscopic Urinalysis Comment CATH-CULT NOT IND Prothrombin Time 10.0 SEC Prothromb Time International Ratio 1.0 RATIO Activated Partial Thromboplast Time 20.5 SEC Magnesium Level 1.8 MG/DL Test 07/03/17 04:56 07/04/17 12:00 White Blood Count 9.7 TH/MM3 Red Blood Count 3.13 MIL/MM3 Hemoglobin 11.7 GM/DL Hematocrit 34.9 % Mean Corpuscular Volume 111.5 FL Mean Corpuscular Hemoglobin 37.4 PG Mean Corpuscular Hemoglobin Concent 33.5 % Red Cell Distribution Width 13.1 % Platelet Count 235 TH/MM3 Mean Platelet Volume 8.8 FL Neutrophils (%) (Auto) 74.7 % Lymphocytes (%) (Auto) 16.0 % Monocytes (%) (Auto) 8.4 % Eosinophils (%) (Auto) 0.7 % Basophils (%) (Auto) 0.2 % Neutrophils # (Auto) 7.3 TH/MM3 Lymphocytes # (Auto) 1.6 TH/MM3 Monocytes # (Auto) 0.8 TH/MM3 Eosinophils # (Auto) 0.1 TH/MM3 Basophils # (Auto) 0.0 TH/MM3 CBC Comment DIFF FINAL Differential Comment Blood Urea Nitrogen 5 MG/DL Creatinine 0.54 MG/DL Random Glucose 100 MG/DL Calcium Level 8.6 MG/DL Sodium Level 140 MEQ/L Potassium Level 4.7 MEQ/L Chloride Level 105 MEQ/L Carbon Dioxide Level 30.0 MEQ/L Anion Gap 5 MEQ/L Estimat Glomerular Filtration Rate 117 ML/MIN Nasal Screen MRSA (PCR) MRSA NOT DETECTED (Poli Valdivia) Medical Decision Making Impression and Plan Impression: 1. 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 Right facial tripod fracture. Diplopia with upward gaze 3. Hyponatremia 4. Hypokalemia 5. Hypothyroidism 6. Alcohol intoxication Patient continues to do well and is neurologically intact. The right-sided facial droop appears resolved. Patient denies any diplopia to the right eye. CT brain demonstrates improvement in the SAH. Physical Therapy recommends discharge home w/Home Health for further therapy. Plan: Discussed plan of care with patient & Nursing. Neuro checks. Stat CT brain for any decline in neuro status. Mobilise patient w/assistance. Continue thyroid medication. Appreciate Plastic Surgery's input for facial fractures. Ophthalmology consultation due to orbital floor fracture with upward gaze diplopia. Will discharge the patient home tomorrow morning so as to allow for Case Management to arrange for Home Health Care. (Poli Valdivia) Attending Statement The exam, history, and the medical decision-making described in the above note were completed with the assistance of the mid-level provider. I reviewed and agree with the findings presented. I attest that I had a [id number] encounter with the patient on the same day, and personally performed and documented my assessment and findings in the medical record. On examination today the patient is awake, relatively alert Mild slowing his speech and thought processes No complaints significant headache Extraocular movements intact Facial movement symmetric Sensation intact to light touch all extremities Strength within normal limits major flexion and extension groups all extremities Plans were discussed with plastic surgery per nursing staff today. The patient will have repair of the facial fractures on a delayed basis in approximately 10- to 14 days. She is otherwise stable for discharge home in the morning. She will pursue outpatient ophthalmology evaluation. Signs and symptoms watch were discussed Pain adequately controlled with oral medications (Zheng Rodriguez MD) Poli Valdivia Jul 04, 2017 17:41 Zheng Rodriguez MD Jul 04, 2017 20:09
[2017-07-05] VITALS: BP 115/74; PULSE 76; RESP 17; TEMP 97.8; O2SAT 94
[2017-07-05] MEDS: ACETAMINOPHEN/HYDROcodone 325 MG/10 MG TAB PO PRN ×3 (01:59→10:36)
[2017-07-05] MEDS: SODIUM CHLORIDE 23.4% INJ 188 MEQ in SODIUM CHLOR 0.9% 1000 ML INJ 1,000 ML IV SCH (02:01)
[2017-07-05] MEDS: NS + KCL 40 MEQ INJ 1,000 ML IV SCH (04:04)
[2017-07-05 04:40] VITALS: BP 135/77; PULSE 82; RESP 18; TEMP 98.3; O2SAT 93
[2017-07-05 10:19] VITALS: BP 140/84; PULSE 78; RESP 18; TEMP 97.5; O2SAT 93
[2017-07-05] MEDS: DOCUSATE SODIUM 50 MG/SENNA 8.6 MG TAB PO SCH (10:37)
[2017-07-05] MEDS: PANTOPRAZOLE SOD 40 MG DELAYED RELEASE TAB PO SCH (10:37)
[2017-07-05 10:40] VITALS: PULSE 110
[2017-07-05 12:00] VITALS: BP 135/78; PULSE 75; RESP 18; TEMP 97.8; O2SAT 96
--- NOTE | 2017-07-05 19:35 | HHI.NSPN ---
History Chief Complaint: mild headache. No nausea. Interval History Patient admitted with traumatic brain injury. Facial fractures. Following fall. 07/05/2017.: No significant new complaints. Mild headache. No nausea or vomiting. No diplopia or blurred vision. No pain weakness numbness in the extremities. Mild right facial pain Exam Results Vital Signs Date Time Temp Pulse Resp B/P (MAP) Pulse Ox O2 Delivery O2 Flow Rate FiO2 07/05/17 12:00 97.8 75 18 135/78 (97) 96 07/04/17 23:31 Room Air 07/04/17 07:55 21 07/03/17 08:13 1.00 Intake and Output 07/05/17 07/05/17 07/06/17 08:00 16:00 00:00 Intake Total 475 ml Output Total 475 ml Balance 0 ml Physical Examination GENERAL: Quiet, but relatively alert Cardiac: Regular without murmur Respirations: Clear to auscultation Abdomen: Soft nontender HEENT: Moderate ecchymosis and edema right face-stable compared to last couple of days. Diminished right periorbital edema and ecchymosis today MUSCULOSKELETAL: No edema or tenderness in the extremities. No extremity pain with range of motion NEUROLOGICAL: AAOx3. Speech clear but slow, appropriate. Follows simple commands w/o difficulty. CN II-XII appear grossly intact, no evident right-sided facial droop. The patient denies any diplopia with superior gaze to right eye. Sensation is intact to light touch in all extremities. Strength normal to all major flexion and extension muscle groups of extremities. Medical Decision Making Impression and Plan Impression: 1. Mild traumatic brain injury. Stable on follow-up CT scan. No neurosurgical intervention planned 2. Right facial contusion fractures. Delayed surgery per plastic surgery. 3. Previous diplopia with up 4 days now resolved. Right orbital floor fracture without definite entrapment per radiology imaging. Plan: Discussed with patient She appears stable for discharge home today Tolerating diet Pain adequately controlled with oral medications She has follow-up appointment next week with plastic surgery. She is advised to schedule an elective appointment with ophthalmology within the next week. Signs and symptoms watch for discussed. Paperwork filled out for short-term disability. Zheng Rodriguez MD Jul 05, 2017 19:35
== END 2017-07-05 14:39 | disposition home health service (06) | DRG 157 ==
LOC: PHED 00:52 → PHEDA 04:04 → N03B 04:20 → PHEDA 04:24 → N03B 04:52 → N05A 07-04 15:59
PROVIDERS: ADMIT Neurological Surgery; ATTEND Neurological Surgery
DX: S02.40EA Zygomatic fracture, right side, initial encounter for closed fracture (principal); S06.6X9A Traumatic subarachnoid hemorrhage with loss of consciousness of unspecified duration, initial encounter; E87.1 Hypo-osmolality and hyponatremia; S02.31XA Fracture of orbital floor, right side, initial encounter for closed fracture; S02.40CA Maxillary fracture, right side, initial encounter for closed fracture; H53.2 Diplopia; H11.30 Conjunctival hemorrhage, unspecified eye; E03.9 Hypothyroidism, unspecified; R29.810 Facial weakness; E87.6 Hypokalemia; F10.129 Alcohol abuse with intoxication, unspecified; Y90.8 Blood alcohol level of 240 mg/100 ml or more; W10.9XXA Fall (on) (from) unspecified stairs and steps, initial encounter; Z72.0 Tobacco use
CPT/HCPCS: 70450; 70486; 72125; 76937; 80048; 80053; 80307; 81001; 83735; 84484; 85025; 85610; 85730; 87641; 93005; 94150; 96361; 96374; J0780; J2405; J3411; J3480; J7030